=== PATIENT | male | born 1945 | race Caucasian/White ===

== ENCOUNTER → 2017-02-02 | Outpatient (CLI) | payer BC | LOC: MW.CHIM 11:08 | PROVIDERS: ATTEND Internal Medicine | DX: I10 Essential (primary) hypertension (principal); E03.9 Hypothyroidism, unspecified; E78.00 Pure hypercholesterolemia, unspecified; I25.10 Atherosclerotic heart disease of native coronary artery without angina pectoris; K21.9 Gastro-esophageal reflux disease without esophagitis | CPT/HCPCS: 36415; 80053; 80061; 83036; 84439; 84443; 84550; 85025 ==

== ENCOUNTER 2020-10-12 09:39 | Day surgery (SDC) | payer BC, MEDICARE ==
[~2020-10-12 09:39] MED LIST: Glycopyrrolate 0.2 MG/ML SDV ONE; Lactated Ringers 1,000 ML IV SCH; Lidocaine 2% 5 ML SDV ONE; Midazolam 1 MG/ML 2 ML SDV ONE; Propofol 200 MG/20 ML SDV ONE; Sodium Chloride 0.9% 10 ML SDV IV PRN; Sodium Chloride 0.9% 10 ML Syringe FLUSH PRN; Sodium Chloride 0.9% 2.5 ML Syringe FLUSH PRN
--- NOTE | 2020-10-12 10:28 | PCM.PREANE ---
Preanesthetic Assessment - Anesthesia/Transfusion/Family Hx Anesthesia History: Prior Anesthesia Without Reaction Other Type of Anesthesia Reaction Comment: Denies any known problem in past, no known family hx: problems Family History of Anesthesia Reaction: No Transfusion History: No Prior Transfusion(s) - Review of Systems General: No Symptoms Pulmonary: No Symptoms Cardiovascular: No Symptoms Gastrointestinal: Difficulty Swallowing Neurological: No Symptoms Other: Reports: None - Physical Assessment NPO Status Date: 10/11/20 Height: 6 ft 2 in Weight: 103.419 kg ASA Class: 3 Mental Status: Alert & Oriented x3 Airway Class: Mallampati = 2 Dentition: Reports: Normal Dentition ROM/Head Extension: Full Lungs: Clear to Auscultation, Normal Respiratory Effort Cardiovascular: Regular Rate, Regular Rhythm - Allergies Allergies/Adverse Reactions: Allergies Allergy/AdvReac Type Severity Reaction Status Date / Time metoprolol [From Lopressor] Allergy Cannot Verified 10/06/20 09:49 Remember dust Allergy watery Uncoded 10/06/20 09:18 eyes/runny nose - Acknowledgements Anesthesia Type Planned: General Anesthesia (tiva) Pt an Appropriate Candidate for the Planned Anesthesia: Yes Alternatives and Risks of Anesthesia Discussed w Pt/Guardian: Yes Pt/Guardian Understands and Agrees with Anesthesia Plan: Yes Additional Comments: pmh: cad with CABG in Nov 2019, KANIKA- could not tolerate CPAP, pre-DM, htn PLAN: tiva PreAnesthesia Questionnaire HEENT History: Reports: Hard of Hearing, Impaired Vision, Other (See Below) Other HEENT History: uses hearing aid Cardiovascular History: Reports: Afib, CAD, High Cholesterol, Hypertension Other Cardiovascular History: A-fib following heartsurgery Respiratory History: Reports: Sleep Apnea Other Respiratory History: Obstructive sleep apnea, has machine "but do not use it" Gastrointestinal History: Reports: Colon Polyp, GERD Genitourinary History: Reports: BPH Musculoskeletal History: Reports: Arthritis, Fracture Other Musculoskeletal History: hx: Fracturing Wrist Neurological History: Reports: Concussion Other Neuro History: "Headaches used to have all the time from when very young until about 18 years old, treated with BP medication and none after that" Psychiatric History: Reports: Anxiety Endocrine/Metabolic History: Reports: Hypothyroidism Other Endocrine/Metabolic History: Hypothyroidism Hematologic History: Reports: None Immunologic History: Reports: None Oncologic (Cancer) History: Reports: None Dermatologic History: Reports: None - Infectious Disease History Infectious Disease History: Reports: None - Past Surgical History Other Musculoskeletal Surgeries/Procedures:: Left knee arthroscopy - SUBSTANCE USE Tobacco Use Status *Q: Never Tobacco User - HOME MEDS Home Medications: Home Meds Levothyroxine Sodium [Synthroid] 112 mcg PO ACBRK 02/10/15 [History] allopurinoL [Allopurinol] 200 mg PO DAILY 02/10/15 [History] atorvaSTATin Calcium [Atorvastatin Calcium] 20 mg PO BEDTIME 08/20/15 [History] Aspirin [Adult Aspirin Regimen] 81 mg PO DAILY 10/06/20 [History] Fenofibrate,Micronized [Fenofibrate] 43 mg PO DAILY 10/06/20 [History] Isosorbide Mononitrate [Isosorbide Mononitrate ER] 0.5 tab PO DAILY 10/06/20 [History] LORazepam [Ativan] 0.5 - 1 tab PO BID PRN 10/06/20 [History] Nitroglycerin 0.4 mg SL ASDIRECTED PRN 10/06/20 [History] Omeprazole 20 mg PO DAILY 10/06/20 [History] Silodosin 4 mg PO DAILY 10/06/20 [History] amLODIPine [Norvasc] 5 mg PO DAILY 10/06/20 [History] carvediloL [Carvedilol] 12.5 mg PO BID 10/06/20 [History] - CURRENT (IN HOUSE) MEDS Current Meds: Current Medications Lactated Ringer's (Ringers, Lactated) 1,000 mls @ 125 mls/hr IV ASDIRECTED HIRA Sodium Chloride (Saline Flush) 10 ml FLUSH ASDIRECTED PRN PRN Reason: Keep Vein Open Sodium Chloride (Saline Flush) 2.5 ml FLUSH ASDIRECTED PRN PRN Reason: Keep Vein Open Sodium Chloride (Saline Flush) 10 ml FLUSH ASDIRECTED PRN PRN Reason: Keep Vein Open Sodium Chloride (Saline Flush) 2.5 ml FLUSH ASDIRECTED PRN PRN Reason: Keep Vein Open Sodium Chloride (Normal Saline) 10 ml IV ASDIRECTED PRN PRN Reason: IV Use Discontinued Medications Glycopyrrolate (Robinul) Confirm Administered Dose 0.2 mg .ROUTE .STK-MED ONE Stop: 10/12/20 07:17 Lidocaine (Xylocaine-Mpf 2%) Confirm Administered Dose 5 ml .ROUTE .STK-MED ONE Stop: 10/12/20 07:17 Midazolam HCl (Versed 1 Mg/Ml) Confirm Administered Dose 2 mg .ROUTE .STK-MED ONE Stop: 10/12/20 07:17 Propofol (Diprivan 20 Ml) Confirm Administered Dose 600 mg .ROUTE .STK-MED ONE Stop: 10/12/20 07:17
--- NOTE | 2020-10-12 11:34 | PCM.OPNOTE ---
- General Post-Op/Procedure Note Date of Surgery/Procedure: 10/12/20 Operative Procedure(s): Diagnostic EGD and colonoscopy, esophageal dilation Findings: Tiny hiatal hernia, no evidence of tight stricture but dilated to 18 mm, transverse colon polyp, diverticulosis Pre Op Diagnosis: Hiatal hernia with GERD, esophageal spasm, history of colon polyps Post-Op Diagnosis: Hiatal hernia with gerd, transverse colon polyp, diverticulosis [place]est[place] [facility] [place] Surgeon: Sonia Dave Condition: Good
--- NOTE | 2020-10-12 12:12 | PCM.POSTAN ---
POST ANESTHESIA ASSESSMENT - MENTAL STATUS Mental Status: Alert - VITAL SIGNS Vital Signs: Last Vital Signs Temp 36.2 C 10/12/20 10:05 Pulse 62 10/12/20 12:05 Resp 15 10/12/20 12:05 BP 104/67 10/12/20 12:05 Pulse Ox 93 L 10/12/20 12:05 - RESPIRATORY Respiratory Status: Respiratory Rate WNL - CARDIOVASCULAR CV Status: Pulse Rate WNL - GASTROINTESTINAL GI Status: No Symptoms - POST OP HYDRATION Hydration Status: Adequate & Stable
[2020-10-12 12:30] VITALS: BP 101/60; PULSE 72
--- NOTE | 2020-10-12 12:33 | PCM48HPAN ---
Post Anesthesia Note - EVALUATION WITHIN 48HRS OF ANESTHETIC Vital Signs in Normal Range: Yes Patient Participated in Evaluation: Yes Respiratory Function Stable: Yes Airway Patent: Yes Cardiovascular Function Stable: Yes Hydration Status Stable: Yes Pain Control Satisfactory: Yes Nausea and Vomiting Control Satisfactory: Yes Mental Status Recovered: Yes Vital Signs: Last Vital Signs Temp 36.5 C 10/12/20 12:08 Pulse 72 10/12/20 12:08 Resp 15 10/12/20 12:08 BP 101/60 10/12/20 12:08 Pulse Ox 94 L 10/12/20 12:08
--- NOTE | 2020-10-12 15:55 | OR ---
SURGEON: SONIA DAVE MD DATE OF PROCEDURE: 10/12/2020 PREOPERATIVE DIAGNOSES: 1. Dysphagia. 2. Hiatal hernia with gastroesophageal reflux disease. 3. History of colon polyps. POSTOPERATIVE DIAGNOSES: 1. Hiatal hernia with gastroesophageal reflux disease. 2. Dysphagia. 3. Transverse colon polyp. 4. Diverticulosis. PROCEDURES PERFORMED: 1. Diagnostic EGD. 2. Esophageal dilation. 3. Diagnostic colonoscopy with polypectomy. PRIMARY SURGEON: Sonia Dave MD. ANESTHESIA: MAC. INSTRUMENT USED: Olympus endoscope and colonoscope. EXTENT OF EXAM: To the second portion of duodenum, to the cecum. PREPARATION: Good. LIMITATIONS: None. INDICATIONS FOR EXAMINATION: The patient is a 74-year-old male with a past medical history significant for hiatal hernia with GERD. In the past, he has undergone an esophageal dilation. This was many years ago. However, the patient has been having increasing dysphagia. He recently underwent an esophagram that showed a tiny hiatal hernia associated with mild reflux as well as esophageal spasm and a small B-ring. The patient also has a history of colon polyps and is due for a repeat colonoscopy. The patient and I discussed the need for a diagnostic EGD and colonoscopy. I explained the procedures, expected perioperative course, and risks. He verbalized understanding and wished to proceed. His dysphagia symptoms may be coming from his esophageal spasm as opposed to the small B-ring seen on esophagram. I did consent him for a possible dilation given my intraoperative findings. We discussed the expected perioperative course and risks with this. He also consented for this procedure. PROCEDURE IN DETAIL: The patient was brought into the endoscopy suite and placed in a beach chair position. A time-out was completed verifying the patient's name, age, date of , allergies, and procedure to be performed. Monitored anesthesia care was induced. A bite-block was placed in the patient's mouth. Continuous oxygen was provided via face mask throughout the procedure. After adequate sedation was achieved, a well-lubricated endoscope was placed in the patient's mouth and advanced under direct visualization to the second portion of duodenum. This appeared normal and a photograph was taken. The scope was then fully withdrawn while examining the color, texture, anatomy, and integrity of the mucosa of the upper GI tract. The duodenum appeared normal. The scope was brought into the stomach and a photograph was taken of the pylorus and GE junction. The patient's hiatal hernia appeared quite small. Biopsies were taken of the gastric antrum, body, and fundus and sent for histologic review and H. pylori testing. The scope was then brought in the distal esophagus and a photograph was taken of the Z-line. This appeared normal. The distal esophageal mucosa appeared normal and there was no evidence of any pathology in the remainder of the esophagus. Given his esophagram findings of a B-ring, the decision was made to attempt dilation. I could pass my scope easily through the GE junction. A dilation balloon was brought into the field. I dilated the esophagus sequentially up to 18 mm using a series of balloon dilators. At 18 mm, there was only a slight superficial tear along the esophageal mucosa. The decision was made to not dilate any further. The scope was removed and this portion of procedure was terminated. A digital rectal exam was performed. This exam was within normal limits. A well-lubricated colonoscope was inserted in the rectum and advanced under direct visualization to the level of the cecum. The cecum was identified by both visual and anatomic landmarks. A photograph was taken of the cecal cap as well as with the scope retroflexed within the cecum. The scope was then fully withdrawn while examining the color, texture, anatomy, and integrity of the mucosa from the cecum to the anal canal. In the mid transverse colon, the patient was noted to have a sessile polyp. This was removed in piecemeal fashion using a cold biopsy forceps. The patient was noted to have diverticulosis throughout the sigmoid colon. A photograph of this was taken. The scope was then brought into the rectum and retroflexed to allow visualization of the anal canal opening. This appeared normal and a photograph was taken. The scope was then straightened out and fully withdrawn. The cecum to anus time was 8 minutes. The patient tolerated the procedure well, was transferred to the PACU in stable condition. ENDOSCOPIC DIAGNOSES: 1. Hiatal hernia with gastroesophageal reflux disease. 2. Dysphagia. 3. Transverse colon polyp. 4. Diverticulosis. RECOMMENDATIONS: I encouraged the patient to stay on a clear liquid diet for 24 hours and then fully advance his diet as tolerated. He should continue to take his PPI. We will follow up with the patient in clinic in 2 weeks. ALLISON / ANTHONY /[id number]
== END 2020-10-12 12:33 | disposition home or self-care (01) ==
LOC: MW.SDS 09:39
PROVIDERS: ATTEND Surgery
DX: Z12.11 Encounter for screening for malignant neoplasm of colon (principal); D12.3 Benign neoplasm of transverse colon; K22.4 Dyskinesia of esophagus; K44.9 Diaphragmatic hernia without obstruction or gangrene; K21.9 Gastro-esophageal reflux disease without esophagitis; R13.10 Dysphagia, unspecified; K57.30 Diverticulosis of large intestine without perforation or abscess without bleeding; K29.50 Unspecified chronic gastritis without bleeding; F41.9 Anxiety disorder, unspecified; I25.10 Atherosclerotic heart disease of native coronary artery without angina pectoris; G89.29 Other chronic pain; E78.00 Pure hypercholesterolemia, unspecified; E03.9 Hypothyroidism, unspecified; G47.33 Obstructive sleep apnea (adult) (pediatric); I48.91 Unspecified atrial fibrillation; I10 Essential (primary) hypertension; Z88.8 Allergy status to other drugs, medicaments and biological substances; Z79.899 Other long term (current) drug therapy; Z79.890 Hormone replacement therapy; Z98.890 Other specified postprocedural states
CPT/HCPCS: 43249; 45380; 88305; 88312; C1726; J2001; J2250; J2704; J3490; J7120; 00813

== ENCOUNTER 2023-07-12 12:30 | Emergency (ER) | payer BC ==
[2023-07-12 12:58] VITALS: BP 127/82; PULSE 86
[2023-07-12] MEDS ORDERED: Acetaminophen/HYDROcodone 325-5 MG Tab PO ONE (13:01)
[2023-07-12 13:25] LABS: BASOPHILS PERCENT AUTO 0.7 % (0.0-1.5); EOSINOPHILS ABSOLUTE AUTO 0.1 K/uL (0.0-0.7); EOSINOPHILS PERCENT AUTO 2.7 % (0.0-7.0); HEMATOCRIT 43.4 % (38.0-50.0); HEMOGLOBIN 14.2 g/dL (13.0-17.0); LYMPHOCYTES ABSOLUTE AUTO 1.2 K/uL (0.6-2.4); LYMPHOCYTES PERCENT AUTO 26.2 % (16.0-40.0); MEAN CORPUSCULAR HEMOGLOBIN 30.1 pg (27.0-32.0); MEAN CORPUSCULAR HGB CONC 32.7 g/dL (31.0-37.0); MEAN CORPUSCULAR VOLUME 92.1 fL (80.0-98.0); MONOCYTES ABSOLUTE AUTO 0.4 K/uL (0.0-0.8); MONOCYTES PERCENT AUTO 7.8 % (0.0-15.0); NEUTROPHILS ABSOLUTE AUTO 2.8 K/uL (1.4-5.7); NEUTROPHILS PERCENT AUTO 62.6 % (48.0-80.0); NRBC ABSOLUTE 0 K/uL; PLATELET COUNT,PLT 210 K/uL (150-400); RED BLOOD CELL COUNT 4.71 M/uL (4.50-5.90); WHITE BLOOD CELL COUNT,WBC 4.46 K/uL (4.0-11.0)
== END 2023-07-12 15:20 | disposition home or self-care (01) ==
LOC: MW.ED 12:30
DX: M25.461 Effusion, right knee (principal); M17.11 Unilateral primary osteoarthritis, right knee; I25.10 Atherosclerotic heart disease of native coronary artery without angina pectoris; I48.91 Unspecified atrial fibrillation; E78.00 Pure hypercholesterolemia, unspecified; I10 Essential (primary) hypertension; K21.9 Gastro-esophageal reflux disease without esophagitis; E03.9 Hypothyroidism, unspecified; Z79.01 Long term (current) use of anticoagulants; Z79.899 Other long term (current) drug therapy; Z91.048 Other nonmedicinal substance allergy status; Z88.8 Allergy status to other drugs, medicaments and biological substances
CPT/HCPCS: 36415; 73562; 84550; 85025; 99283; A9270

== ENCOUNTER 2024-04-30 17:50 | Emergency (ER) | payer BC ==
[2024-04-30 18:05] LABS: BASOPHILS ABSOLUTE AUTO 0.05 K/uL (0.00-0.20); BASOPHILS PERCENT AUTO 0.7 % (0.0-1.0); EOSINOPHILS PERCENT AUTO 1.5 % (0.0-6.0); HEMATOCRIT 50.5 % (42.0-52.0); HEMOGLOBIN 16.6 g/dL (14.0-18.0); IMMATURE GRAN ABSOLUTE AUTO 0.01 K/uL (0.00-0.05); IMMATURE GRAN PERCENT AUTO 0.1 % (0.0-0.4); LYMPHOCYTES ABSOLUTE AUTO 1.76 K/uL (1.00-4.80); LYMPHOCYTES PERCENT AUTO 26.2 % (24.0-44.0); MEAN CORPUSCULAR HEMOGLOBIN 29.4 pg (28.0-32.0); MEAN CORPUSCULAR HGB CONC 32.9 g/dL (32.0-36.0); MEAN CORPUSCULAR VOLUME 89.4 fL (83.0-99.0); MEAN PLATELET VOLUME 9.7 fL (9.4-12.4); MONOCYTES ABSOLUTE AUTO 0.66 K/uL (0.00-0.80); MONOCYTES PERCENT AUTO 9.8 % (0.0-8.0); NEUTROPHILS ABSOLUTE AUTO 4.14 K/uL (1.80-7.70); NEUTROPHILS PERCENT AUTO 61.7 % (41.0-71.0); PLATELET COUNT,PLT 262 K/uL (150-400); RED BLOOD CELL COUNT 5.65 M/uL (4.52-5.90); WHITE BLOOD CELL COUNT,WBC 6.72 K/uL (3.9-11.3)
[2024-04-30] MEDS: Sodium Chloride 0.9% 2.5 ML Syringe FLUSH PRN (18:24)
[2024-04-30] MEDS: Sodium Chloride 0.9% 10 ML Syringe FLUSH PRN (18:24)
[2024-04-30 18:36] LABS: A/G RATIO 0.9 (0.9-1.6); ALANINE AMINOTRANSFERASE,ALT 29 IU/L (14-63); ALBUMIN 3.6 g/dL (3.4-5.0); ALKALINE PHOSPHATASE 53 U/L (46-116); ASPARTATE AMNIOTRANSFERASE,AST 19 IU/L (15-37); BILIRUBIN TOTAL 0.6 mg/dL (0.2-1.0); BLOOD UREA NITROGEN,BUN 19 mg/dL (7.0-18.0); CALCIUM 9.4 mg/dL (8.5-10.1); CARBON DIOXIDE,CO2 28.9 mmol/L (21.0-32.0); CHLORIDE,CL 101 mmol/L (98-107); CREATININE 2.3 mg/dL (0.8-1.3); GLUCOSE RANDOM 137 mg/dL (74-106); LIPASE 38 U/L (16-77); POTASSIUM,K 4.3 mmol/L (3.5-5.1); PROTEIN TOTAL,TP 7.5 g/dL (6.4-8.2); SODIUM,NA 136 mmol/L (136-148)
[2024-04-30 18:53] LABS: ESTIMATED GFR 29 mL/min (>60)
[2024-04-30 23:20] VITALS: BP 145/88; PULSE 72
== END 2024-04-30 23:18 | disposition home or self-care (01) ==
LOC: MW.ED 17:50
DX: R91.8 Other nonspecific abnormal finding of lung field (principal); M54.50 Low back pain, unspecified; I10 Essential (primary) hypertension; E78.00 Pure hypercholesterolemia, unspecified; I25.10 Atherosclerotic heart disease of native coronary artery without angina pectoris; I48.91 Unspecified atrial fibrillation; K21.9 Gastro-esophageal reflux disease without esophagitis; E03.9 Hypothyroidism, unspecified; Z88.8 Allergy status to other drugs, medicaments and biological substances; Z91.048 Other nonmedicinal substance allergy status; Z79.899 Other long term (current) drug therapy; Z79.01 Long term (current) use of anticoagulants; Z79.85 Long-term (current) use of injectable non-insulin antidiabetic drugs; Z79.890 Hormone replacement therapy; W01.198A Fall on same level from slipping, tripping and stumbling with subsequent striking against other object, initial encounter
CPT/HCPCS: 36415; 70450; 71250; 72125; 72128; 72131; 74176; 80053; 83690; 84484; 85025; 86850; 86900; 86901; 93005; 99284; J3490; 93010; 99283

== ENCOUNTER 2025-01-06 15:27 | Inpatient (IN) | payer MEDICARE, BC ==
[2025-01-06] MEDS ORDERED: Sodium Chloride 0.9% 2.5 ML Syringe FLUSH PRN (15:56)
[2025-01-06] MEDS ORDERED: Sodium Chloride 0.9% 10 ML Syringe FLUSH PRN (15:56)
[2025-01-06] MEDS: Sodium Chloride 0.9% 1,000 ML IV STA ×2 (17:01→18:23)
[2025-01-06 17:05] LABS: BASOPHILS ABSOLUTE AUTO 0.04 K/uL (0.00-0.20); BASOPHILS PERCENT AUTO 0.6 % (0.0-1.0); EOSINOPHILS ABSOLUTE AUTO 0.09 K/uL (0.00-0.45); EOSINOPHILS PERCENT AUTO 1.4 % (0.0-6.0); HEMATOCRIT 47.6 % (42.0-52.0); HEMOGLOBIN 15.8 g/dL (14.0-18.0); IMMATURE GRAN ABSOLUTE AUTO 0.02 K/uL (0.00-0.05); IMMATURE GRAN PERCENT AUTO 0.3 % (0.0-0.4); LYMPHOCYTES ABSOLUTE AUTO 1.02 K/uL (1.00-4.80); LYMPHOCYTES PERCENT AUTO 16.1 % (24.0-44.0); MEAN CORPUSCULAR HEMOGLOBIN 29.4 pg (28.0-32.0); MEAN CORPUSCULAR HGB CONC 33.2 g/dL (32.0-36.0); MEAN CORPUSCULAR VOLUME 88.6 fL (83.0-99.0); MEAN PLATELET VOLUME 9.6 fL (9.4-12.4); MONOCYTES ABSOLUTE AUTO 0.73 K/uL (0.00-0.80); MONOCYTES PERCENT AUTO 11.5 % (0.0-8.0); NEUTROPHILS ABSOLUTE AUTO 4.45 K/uL (1.80-7.70); NEUTROPHILS PERCENT AUTO 70.1 % (41.0-71.0); PLATELET COUNT,PLT 156 K/uL (150-400); RED BLOOD CELL COUNT 5.37 M/uL (4.52-5.90); WHITE BLOOD CELL COUNT,WBC 6.35 K/uL (3.9-11.3)
[2025-01-06 17:26] LABS: CORONAVIRUS COVID-19 NAA NEGATIVE (NEGATIVE); INFLUENZA A NAA NEGATIVE (NEGATIVE); INFLUENZA B NAA NEGATIVE (NEGATIVE); RESPIRATORY SYNCYTIAL VIR NAA POSITIVE (NEGATIVE)
[2025-01-06 17:28] LABS: A/G RATIO 1.1 (0.9-1.6); ALBUMIN 3.6 g/dL (3.4-5.0); BILIRUBIN TOTAL 0.9 mg/dL (0.2-1.0); CALCIUM 8.9 mg/dL (8.5-10.1); CARBON DIOXIDE,CO2 27.9 mmol/L (21.0-32.0); CREATININE 2.1 mg/dL (0.8-1.3); EST CRCL DRUG DOSING (CG) 32.33 mL/min
[2025-01-06 17:31] LABS: MAGNESIUM 1.8 mg/dL (1.8-2.4)
[2025-01-06 19:16] LABS: BILIRUBIN,URINE NEGATIVE (NEGATIVE); COLOR,URINE YELLOW; GLUCOSE,URINE NEGATIVE (NEGATIVE); KETONES,URINE NEGATIVE (NEGATIVE); LEUKOCYTE ESTERASE,URINE NEGATIVE (NEGATIVE); NITRITE,URINE NEGATIVE (NEGATIVE); OCCULT BLOOD,URINE MODERATE (NEGATIVE); PH,URINE 5.5 (5.0-8.0); PROTEIN,URINE >=300 mg/dL (NEGATIVE); UROBILINOGEN,URINE 0.2 EU/dL (<2.0)
[2025-01-06 19:17] LABS: APPEARANCE,URINE HAZY
[2025-01-06 19:20] LABS: BACTERIA,URINE FEW (NEGATIVE); HYALINE CASTS,URINE 0-1 (0-2/LPF); MUCUS,URINE LIGHT (NONE-MOD); SQUAMOUS EPITHELIAL CELLS,UR NOT SEEN; WBC,URINE 0-2 (0-5/HPF)
[2025-01-06] MEDS ORDERED: 50% Dextrose in Water 50 ML Syringe IVPUSH PRN (23:08)
[2025-01-06] MEDS ORDERED: Glucagon,Human Recombinant 1 MG Vial IM PRN (23:08)
[2025-01-06] MEDS: Apixaban 5 MG Tab PO SCH (23:21)
[2025-01-06] MEDS: atorvaSTATin 20 MG Tab PO SCH (23:21)
[2025-01-06] MEDS: Losartan 25 MG Tab PO STA (23:21)
[2025-01-06] MEDS: Carvedilol 12.5 MG Tab PO SCH (23:23)
[2025-01-06] MEDS: Sodium Chloride 0.9% 1,000 ML IV SCH (23:24)
[2025-01-06] MEDS: Acetaminophen 325 MG Tab PO PRN (23:24)
[2025-01-07 06:44] LABS: BASOPHILS ABSOLUTE AUTO 0.03 K/uL (0.00-0.20); BASOPHILS PERCENT AUTO 0.6 % (0.0-1.0); EOSINOPHILS ABSOLUTE AUTO 0.06 K/uL (0.00-0.45); EOSINOPHILS PERCENT AUTO 1.1 % (0.0-6.0); HEMATOCRIT 44.6 % (42.0-52.0); HEMOGLOBIN 14.6 g/dL (14.0-18.0); IMMATURE GRAN ABSOLUTE AUTO 0.01 K/uL (0.00-0.05); IMMATURE GRAN PERCENT AUTO 0.2 % (0.0-0.4); LYMPHOCYTES ABSOLUTE AUTO 1.25 K/uL (1.00-4.80); LYMPHOCYTES PERCENT AUTO 23.4 % (24.0-44.0); MEAN CORPUSCULAR HGB CONC 32.7 g/dL (32.0-36.0); MEAN CORPUSCULAR VOLUME 88.7 fL (83.0-99.0); MONOCYTES ABSOLUTE AUTO 0.63 K/uL (0.00-0.80); MONOCYTES PERCENT AUTO 11.8 % (0.0-8.0); NEUTROPHILS ABSOLUTE AUTO 3.37 K/uL (1.80-7.70); NEUTROPHILS PERCENT AUTO 62.9 % (41.0-71.0); PLATELET COUNT,PLT 130 K/uL (150-400); RED BLOOD CELL COUNT 5.03 M/uL (4.52-5.90); WHITE BLOOD CELL COUNT,WBC 5.35 K/uL (3.9-11.3)
[2025-01-07 07:15] LABS: A/G RATIO 0.9 (0.9-1.6); CALCIUM 8.1 mg/dL (8.5-10.1); CARBON DIOXIDE,CO2 23.8 mmol/L (21.0-32.0); CREATININE 1.8 mg/dL (0.8-1.3); EST CRCL DRUG DOSING (CG) 39.96 mL/min; POTASSIUM,K 4.5 mmol/L (3.5-5.1); PROTEIN TOTAL,TP 6.5 g/dL (6.4-8.2)
[2025-01-07] MEDS: Insulin Aspart 100 Units/ML 3 ML Pen SUBCUT SCH (09:20)
[2025-01-07] MEDS ORDERED: Cyclobenzaprine 10 MG Tab PO PRN (12:18)
[2025-01-07] MEDS ORDERED: Polyethylene Glycol 3350 Powder 17 GM Packet PO PRN (12:22)
[2025-01-07] MEDS ORDERED: Docusate Sodium 100 MG Cap PO PRN (12:23)
[2025-01-07] MEDS ORDERED: Isosorbide Mononitrate 30 MG Tab.ER PO SCH (12:30)
[2025-01-07] MEDS: Losartan 25 MG Tab PO SCH (13:45)
[2025-01-07] MEDS: Fluticasone NASAL Spray 16 GM Bottle NASBOTH PRN (20:26)
[2025-01-07] MEDS: Carboxymethylcellulose Sodium 0.5% Ophth Soln 0.4 ML UD Box of 30 EYEBOTH PRN (20:26)
[2025-01-08] MEDS: Allopurinol 100 MG Tab PO SCH (06:31)
[2025-01-08] MEDS: Pantoprazole 40 MG Tab.CR PO SCH (06:31)
[2025-01-08 07:03] LABS: BASOPHILS ABSOLUTE AUTO 0.04 K/uL (0.00-0.20); BASOPHILS PERCENT AUTO 0.9 % (0.0-1.0); EOSINOPHILS ABSOLUTE AUTO 0.12 K/uL (0.00-0.45); EOSINOPHILS PERCENT AUTO 2.6 % (0.0-6.0); HEMATOCRIT 44.9 % (42.0-52.0); LYMPHOCYTES PERCENT AUTO 30.6 % (24.0-44.0); MEAN CORPUSCULAR HEMOGLOBIN 29.1 pg (28.0-32.0); MEAN CORPUSCULAR HGB CONC 33.4 g/dL (32.0-36.0); MEAN PLATELET VOLUME 9.3 fL (9.4-12.4); MONOCYTES ABSOLUTE AUTO 0.62 K/uL (0.00-0.80); MONOCYTES PERCENT AUTO 13.5 % (0.0-8.0); NEUTROPHILS PERCENT AUTO 52.4 % (41.0-71.0); PLATELET COUNT,PLT 134 K/uL (150-400); RED BLOOD CELL COUNT 5.16 M/uL (4.52-5.90); WHITE BLOOD CELL COUNT,WBC 4.58 K/uL (3.9-11.3)
[2025-01-08 07:24] LABS: A/G RATIO 0.8 (0.9-1.6); CALCIUM 8.5 mg/dL (8.5-10.1); CREATININE 1.7 mg/dL (0.8-1.3); EST CRCL DRUG DOSING (CG) 42.31 mL/min; POTASSIUM,K 4.2 mmol/L (3.5-5.1); PROTEIN TOTAL,TP 6.8 g/dL (6.4-8.2)
[2025-01-08] MEDS ORDERED: Sodium Chloride 0.9% 1,000 ML IV SCH (07:45)
[2025-01-08] MEDS: Tamsulosin 0.4 MG Cap.ER PO SCH (09:34)
[2025-01-08] MEDS: Sertraline 50 MG Tab PO SCH (09:36)
[2025-01-08 09:38] VITALS: BP 108/63; PULSE 55
== END 2025-01-08 11:12 | disposition home or self-care (01) | DRG 92 ==
LOC: MW.ED 15:27 → MW.MS 20:07 → OBSVTOIN 01-07 08:58 → MW.MS 01-07 09:39
PROVIDERS: ADMIT Internal Medicine; ATTEND Internal Medicine
DX: G72.9 Myopathy, unspecified (principal); C64.9 Malignant neoplasm of unspecified kidney, except renal pelvis; G93.49 Other encephalopathy; R41.0 Disorientation, unspecified; D84.9 Immunodeficiency, unspecified; N18.32 Chronic kidney disease, stage 3b; H91.90 Unspecified hearing loss, unspecified ear; H54.7 Unspecified visual loss; I48.91 Unspecified atrial fibrillation; I25.10 Atherosclerotic heart disease of native coronary artery without angina pectoris; E78.00 Pure hypercholesterolemia, unspecified; Z91.048 Other nonmedicinal substance allergy status; G47.30 Sleep apnea, unspecified; Z79.890 Hormone replacement therapy; K21.9 Gastro-esophageal reflux disease without esophagitis; N40.0 Benign prostatic hyperplasia without lower urinary tract symptoms; M19.90 Unspecified osteoarthritis, unspecified site; F41.9 Anxiety disorder, unspecified; E03.9 Hypothyroidism, unspecified; J31.0 Chronic rhinitis; I12.9 Hypertensive chronic kidney disease with stage 1 through stage 4 chronic kidney disease, or unspecified chronic kidney disease; E86.0 Dehydration; R33.9 Retention of urine, unspecified; M47.812 Spondylosis without myelopathy or radiculopathy, cervical region; B97.4 Respiratory syncytial virus as the cause of diseases classified elsewhere; Z90.12 Acquired absence of left breast and nipple; Z79.899 Other long term (current) drug therapy; Z88.8 Allergy status to other drugs, medicaments and biological substances; Z79.01 Long term (current) use of anticoagulants; Z85.53 Personal history of malignant neoplasm of renal pelvis
CPT/HCPCS: 0241U; 36415; 51798; 70450; 71045; 72125; 80053; 81001; 82947; 83690; 83735; 84484; 85025; 93005; 96360; 96361; 97162; 99285; 93010; 99222; 99232; 99239; 99284; A9270-GY; G0378; J3490; J7030

== ENCOUNTER 2025-06-27 23:06 | Inpatient (IN) | payer MEDICARE, BC ==
[2025-06-27] MEDS ORDERED: Sodium Chloride 0.9% 10 ML Syringe FLUSH PRN (23:23)
[2025-06-27] MEDS ORDERED: Sodium Chloride 0.9% 2.5 ML Syringe FLUSH PRN (23:23)
[2025-06-28 00:20] LABS: INR 1.18 (0.86-1.11)
[2025-06-28 00:29] LABS: MEAN PLATELET VOLUME 9.5 fL (9.4-12.4); NRBC ABSOLUTE 0.00 K/uL (0.00-0.02); NRBC PERCENT 0.0 /100WBC (0.0-0.2); PLATELET COUNT,PLT 185 K/uL (150-400); RED BLOOD CELL COUNT 3.34 M/uL (4.52-5.90); WHITE BLOOD CELL COUNT,WBC 3.36 K/uL (3.9-11.3)
[2025-06-28 00:31] LABS: LACTIC ACID 1.2 mmol/L (0.4-2.0)
[2025-06-28 00:32] LABS: A/G RATIO 0.9 (0.9-1.6); ALANINE AMINOTRANSFERASE,ALT 18 IU/L (14-63); ASPARTATE AMNIOTRANSFERASE,AST 9 IU/L (15-37); BILIRUBIN TOTAL 0.6 mg/dL (0.2-1.0); BLOOD UREA NITROGEN,BUN 19 mg/dL (7.0-18.0); CARBON DIOXIDE,CO2 24.6 mmol/L (21.0-32.0); CHLORIDE,CL 105 mmol/L (98-107); CREATININE 2.0 mg/dL (0.8-1.3); GLUCOSE RANDOM 141 mg/dL (74-106); POTASSIUM,K 3.6 mmol/L (3.5-5.1); PRO B-TYPE NATRIUR PEPT,BNPPRO 3281 pg/mL (0-450); PROTEIN TOTAL,TP 6.1 g/dL (6.4-8.2); SODIUM,NA 140 mmol/L (136-148)
[2025-06-28 00:34] LABS: ESTIMATED GFR 34 mL/min (>60); ETHANOL BLOOD MEDICAL < 3.0 mg/dL
[2025-06-28] MEDS: VANCOmycin 1.75 GM/350 ML 1.75 GM in Premix Bag 1 BAG IV ONE (00:41)
[2025-06-28] MEDS: Magnesium Sulfate 2 GM/50 mL 2 GM in Premix Bag 1 BAG IV ONE (01:02)
[2025-06-28 01:37] LABS: EOSINOPHILS ABSOLUTE MAN 0.07 K/uL (0.00-0.45); EOSINOPHILS PERCENT MAN 2 % (0-6); LYMPHOCYTES ABSOLUTE MAN 0.54 K/uL (1.00-4.80); LYMPHOCYTES PERCENT MAN 16 % (24-44); MONOCYTES ABSOLUTE MAN 0.60 K/uL (0.00-0.80); MONOCYTES PERCENT MAN 18 % (0-8); SEG NEUTROPHILS ABSOLUTE MAN 2.15 K/uL (1.80-7.70); SEG NEUTROPHILS PERCENT MAN 64 % (41-71)
[2025-06-28] MEDS ORDERED: Sodium Chloride 0.9% 10 ML Syringe FLUSH PRN (02:06)
[2025-06-28] MEDS ORDERED: Sodium Chloride 0.9% 2.5 ML Syringe FLUSH PRN (02:06)
[2025-06-28] MEDS ORDERED: Naloxone 0.4 MG/ML SDV IVPUSH PRN (02:06)
[2025-06-28] MEDS ORDERED: 50% Dextrose in Water 50 ML Syringe IVPUSH PRN ×2 (02:14→13:32)
[2025-06-28] MEDS: cefTRIAXone 2 GM in Water For Injection, Sterile 20 ML IVPUSH SCH (03:47)
[2025-06-28] MEDS: Ondansetron 4 MG/2 ML SDV IVPUSH SCH ×2 (03:53→07:47)
[2025-06-28 05:23] LABS: MEAN PLATELET VOLUME 9.4 fL (9.4-12.4); NRBC ABSOLUTE 0.00 K/uL (0.00-0.02); NRBC PERCENT 0.0 /100WBC (0.0-0.2); PLATELET COUNT,PLT 159 K/uL (150-400); RED BLOOD CELL COUNT 2.93 M/uL (4.52-5.90); WHITE BLOOD CELL COUNT,WBC 3.57 K/uL (3.9-11.3)
[2025-06-28 05:44] LABS: BLOOD UREA NITROGEN,BUN 19.0 mg/dL (7.0-18.0); CARBON DIOXIDE,CO2 25.4 mmol/L (21.0-32.0); CHLORIDE,CL 106.0 mmol/L (98-107); CREATININE 1.9 mg/dL (0.8-1.3); EST CRCL DRUG DOSING (CG) 37.86 mL/min; GLUCOSE RANDOM 125.0 mg/dL (74-106); POTASSIUM,K 3.9 mmol/L (3.5-5.1); SODIUM,NA 140.0 mmol/L (136-148)
[2025-06-28 06:07] LABS: ESTIMATED GFR 36.0 mL/min (>60)
[2025-06-28 06:38] LABS: EOSINOPHILS ABSOLUTE MAN 0.18 K/uL (0.00-0.45); EOSINOPHILS PERCENT MAN 5 % (0-6); LYMPHOCYTES ABSOLUTE MAN 1.00 K/uL (1.00-4.80); LYMPHOCYTES PERCENT MAN 28 % (24-44); MONOCYTES ABSOLUTE MAN 0.43 K/uL (0.00-0.80); MONOCYTES PERCENT MAN 12 % (0-8); SEG NEUTROPHILS ABSOLUTE MAN 1.96 K/uL (1.80-7.70); SEG NEUTROPHILS PERCENT MAN 55 % (41-71)
[2025-06-28 06:49] LABS: APPEARANCE,URINE CLEAR; GLUCOSE,URINE NEGATIVE (NEGATIVE); OCCULT BLOOD,URINE MODERATE (NEGATIVE)
[2025-06-28 07:01] LABS: EPITHELIAL CELLS,URINE FEW (NONE-FEW)
[2025-06-28] MEDS: Metoprolol Tartrate 5 MG/5 ML SDV IVPUSH ONE (07:21)
[2025-06-28] MEDS: Diltiazem 25 MG/5 ML SDV IVPUSH ONE ×2 (07:26→10:11)
[2025-06-28] MEDS ORDERED: Ondansetron 4 MG/2 ML SDV IVPUSH PRN (13:49)
[2025-06-28] MEDS: Insulin Glargine,Human Rec. Analog 100 Units/ML 3 ML Pen SUBCUT SCH (21:05)
[2025-06-29 05:07] LABS: MEAN PLATELET VOLUME 9.1 fL (9.4-12.4); NRBC ABSOLUTE 0.00 K/uL (0.00-0.02); NRBC PERCENT 0.0 /100WBC (0.0-0.2); PLATELET COUNT,PLT 175 K/uL (150-400); RED BLOOD CELL COUNT 3.03 M/uL (4.52-5.90); WHITE BLOOD CELL COUNT,WBC 3.30 K/uL (3.9-11.3)
[2025-06-29 05:35] LABS: A/G RATIO 0.8 (0.9-1.6); ALANINE AMINOTRANSFERASE,ALT 9.0 IU/L (14-63); ASPARTATE AMNIOTRANSFERASE,AST 10.0 IU/L (15-37); BILIRUBIN TOTAL 0.2 mg/dL (0.2-1.0); BLOOD UREA NITROGEN,BUN 12.0 mg/dL (7.0-18.0); CARBON DIOXIDE,CO2 23.8 mmol/L (21.0-32.0); CHLORIDE,CL 108.0 mmol/L (98-107); CREATININE 1.7 mg/dL (0.8-1.3); EST CRCL DRUG DOSING (CG) 42.31 mL/min; GLUCOSE RANDOM 129.0 mg/dL (74-106); POTASSIUM,K 3.5 mmol/L (3.5-5.1); PROTEIN TOTAL,TP 5.0 g/dL (6.4-8.2); SODIUM,NA 143.0 mmol/L (136-148)
[2025-06-29 05:46] LABS: ESTIMATED GFR 41.0 mL/min (>60)
[2025-06-29 05:48] LABS: EOSINOPHILS ABSOLUTE MAN 0.07 K/uL (0.00-0.45); EOSINOPHILS PERCENT MAN 2 % (0-6); MYELOCYTE ABSOLUTE MAN 0.03; MYELOCYTE PERCENT MAN 1 %
[2025-06-29 05:49] LABS: BAND ABSOLUTE MAN 0.17; BAND PERCENT MAN 5 %; LYMPHOCYTES ABSOLUTE MAN 0.99 K/uL (1.00-4.80); LYMPHOCYTES PERCENT MAN 30 % (24-44)
[2025-06-29 05:50] LABS: MONOCYTES ABSOLUTE MAN 0.66 K/uL (0.00-0.80); MONOCYTES PERCENT MAN 20 % (0-8); SEG NEUTROPHILS ABSOLUTE MAN 1.39 K/uL (1.80-7.70); SEG NEUTROPHILS PERCENT MAN 42 % (41-71)
[2025-06-29] MEDS ORDERED: Octreotide 100 MCG/ML SDV SUBCUT SCH (14:00)
[2025-06-29] MEDS: Diltiazem IR 60 MG Tab PO SCH (21:02)
[2025-06-29] MEDS: Octreotide 100 MCG/ML SDV SUBCUT SCH (21:09)
[2025-06-30] MEDS: cefTRIAXone 1 GM in Water For Injection, Sterile 10 ML IVPUSH SCH (02:31)
[2025-06-30 06:03] LABS: BORDETELLA PARAPERT IS1001 Not Detected (Not Detected)
[2025-06-30 08:59] LABS: MEAN PLATELET VOLUME 9.3 fL (9.4-12.4); NRBC ABSOLUTE 0.00 K/uL (0.00-0.02); NRBC PERCENT 0.0 /100WBC (0.0-0.2); PLATELET COUNT,PLT 205 K/uL (150-400); RED BLOOD CELL COUNT 3.14 M/uL (4.52-5.90); WHITE BLOOD CELL COUNT,WBC 3.24 K/uL (3.9-11.3)
[2025-06-30 09:40] LABS: A/G RATIO 0.7 (0.9-1.6); ALANINE AMINOTRANSFERASE,ALT 6.0 IU/L (14-63); ASPARTATE AMNIOTRANSFERASE,AST 13.0 IU/L (15-37); BILIRUBIN TOTAL 0.3 mg/dL (0.2-1.0); BLOOD UREA NITROGEN,BUN 9.0 mg/dL (7.0-18.0); CARBON DIOXIDE,CO2 22.4 mmol/L (21.0-32.0); CHLORIDE,CL 110.0 mmol/L (98-107); CREATININE 1.6 mg/dL (0.8-1.3); EST CRCL DRUG DOSING (CG) 44.95 mL/min; GLUCOSE RANDOM 154.0 mg/dL (74-106); POTASSIUM,K 3.8 mmol/L (3.5-5.1); PROTEIN TOTAL,TP 4.8 g/dL (6.4-8.2); SODIUM,NA 142.0 mmol/L (136-148)
[2025-06-30 09:51] LABS: ESTIMATED GFR 44.0 mL/min (>60)
[2025-06-30 10:06] LABS: BAND ABSOLUTE MAN 0.52; BAND PERCENT MAN 16 %; EOSINOPHILS ABSOLUTE MAN 0.26 K/uL (0.00-0.45); EOSINOPHILS PERCENT MAN 8 % (0-6); LYMPHOCYTES ABSOLUTE MAN 1.23 K/uL (1.00-4.80); LYMPHOCYTES PERCENT MAN 38 % (24-44); METAMYELOCYTE ABSOLUTE MAN 0.06; METAMYELOCYTE PERCENT MAN 2 %; MONOCYTES ABSOLUTE MAN 0.06 K/uL (0.00-0.80); MONOCYTES PERCENT MAN 2 % (0-8); SEG NEUTROPHILS ABSOLUTE MAN 1.10 K/uL (1.80-7.70); SEG NEUTROPHILS PERCENT MAN 34 % (41-71)
[2025-06-30 15:12] VITALS: BP 114/76; PULSE 73
== END 2025-06-30 13:00 | disposition home or self-care (01) | DRG 195 ==
LOC: MW.ED 23:06 → MW.MS 06-28 02:11
PROVIDERS: ADMIT Family Medicine; ATTEND Family Medicine
DX: J18.9 Pneumonia, unspecified organism (principal); H91.90 Unspecified hearing loss, unspecified ear; Z79.890 Hormone replacement therapy; H54.7 Unspecified visual loss; I48.91 Unspecified atrial fibrillation; I25.10 Atherosclerotic heart disease of native coronary artery without angina pectoris; E78.00 Pure hypercholesterolemia, unspecified; I10 Essential (primary) hypertension; G47.30 Sleep apnea, unspecified; K21.9 Gastro-esophageal reflux disease without esophagitis; N40.0 Benign prostatic hyperplasia without lower urinary tract symptoms; M19.90 Unspecified osteoarthritis, unspecified site; F41.9 Anxiety disorder, unspecified; E11.9 Type 2 diabetes mellitus without complications; E03.9 Hypothyroidism, unspecified; Z98.890 Other specified postprocedural states; Z88.8 Allergy status to other drugs, medicaments and biological substances; Z79.4 Long term (current) use of insulin; Z79.01 Long term (current) use of anticoagulants; Z79.899 Other long term (current) drug therapy
CPT/HCPCS: 36415; 70450; 71045; 76705; 80053; 80307; 83605; 83690; 83735; 83880; 84484; 85025; 85610; 87040 ×2; 96365 ×2; 96367; 99285; A9270; J2543; J3375; J3475; J7030; 80048; 81001; 82947; 86140; 87045; 87046; 87086; 87324; 87328; 87329; 87426-QW; 87449; 87486; 87581; 87633; 87899; 93010; 93306; 99222; 99232; 99239; A4216; J0456; J0696; J1815-GY; J2270; J2405; J3490; J7050; Q5104

== ENCOUNTER 2025-09-01 05:38 | Emergency (ER) | payer MEDICARE, BC ==
[2025-09-01 06:25] LABS: BASOPHILS ABSOLUTE AUTO 0.03 K/uL (0.00-0.20); BASOPHILS PERCENT AUTO 0.4 % (0.0-1.0); EOSINOPHILS ABSOLUTE AUTO 0.21 K/uL (0.00-0.45); EOSINOPHILS PERCENT AUTO 3.1 % (0.0-6.0); IMMATURE GRAN ABSOLUTE AUTO 0.02 K/uL (0.00-0.05); IMMATURE GRAN PERCENT AUTO 0.3 % (0.0-0.4); LYMPHOCYTES ABSOLUTE AUTO 2.51 K/uL (1.00-4.80); LYMPHOCYTES PERCENT AUTO 37.4 % (24.0-44.0); MEAN PLATELET VOLUME 9.4 fL (9.4-12.4); MONOCYTES ABSOLUTE AUTO 0.83 K/uL (0.00-0.80); MONOCYTES PERCENT AUTO 12.4 % (0.0-8.0); NEUTROPHILS ABSOLUTE AUTO 3.12 K/uL (1.80-7.70); NEUTROPHILS PERCENT AUTO 46.4 % (41.0-71.0); NRBC ABSOLUTE 0.00 K/uL (0.00-0.02); NRBC PERCENT 0.0 /100WBC (0.0-0.2); PLATELET COUNT,PLT 263 K/uL (150-400); RED BLOOD CELL COUNT 4.66 M/uL (4.52-5.90); WHITE BLOOD CELL COUNT,WBC 6.72 K/uL (3.9-11.3)
[2025-09-01 07:58] LABS: A/G RATIO 0.5 (0.9-1.6); ALANINE AMINOTRANSFERASE,ALT 23 IU/L (14-63); ASPARTATE AMNIOTRANSFERASE,AST 14 IU/L (15-37); BILIRUBIN TOTAL 0.4 mg/dL (0.2-1.0); BLOOD UREA NITROGEN,BUN 20 mg/dL (7.0-18.0); CARBON DIOXIDE,CO2 31.0 mmol/L (21.0-32.0); CHLORIDE,CL 101 mmol/L (98-107); CREATININE 1.8 mg/dL (0.8-1.3); EST CRCL DRUG DOSING (CG) 35.97 mL/min; ESTIMATED GFR 38 mL/min (>60); GLUCOSE RANDOM 100 mg/dL (74-106); POTASSIUM,K 3.5 mmol/L (3.5-5.1); PRO B-TYPE NATRIUR PEPT,BNPPRO 4089 pg/mL (0-450); PROTEIN TOTAL,TP 5.7 g/dL (6.4-8.2); SODIUM,NA 138 mmol/L (136-148); TSH ULTRASENSITIVE 0.79 uIU/mL (0.36-3.74)
[2025-09-01] MEDS ORDERED: Magnesium Sulfate (4.06 MEQ/ML) 5 GM/10 ML SDV IV ONE (08:37)
[2025-09-01] MEDS ORDERED: Calcium Gluc in NaCl, ISO-OSM 1,000 MG in Premix Bag 1 BAG IV ONE (08:37)
[2025-09-01] MEDS: Calcium Gluc in NaCl, ISO-OSM 1,000 MG in Premix Bag 1 BAG IV SCH (09:40)
[2025-09-01] MEDS: Magnesium Sulfate 4 GM/100 mL 4 GM in Premix Bag 1 BAG IV ONE (10:10)
[2025-09-01 10:55] LABS: APPEARANCE,URINE CLEAR; GLUCOSE,URINE NEGATIVE (NEGATIVE); OCCULT BLOOD,URINE NEGATIVE (NEGATIVE)
[2025-09-01 11:04] LABS: EPITHELIAL CELLS,URINE NOT SEEN (NONE-FEW)
[2025-09-01 13:32] VITALS: BP 141/87; PULSE 91
== END 2025-09-01 13:32 | disposition home or self-care (01) ==
LOC: MW.ED 05:38
DX: E83.42 Hypomagnesemia (principal); E83.51 Hypocalcemia; I48.91 Unspecified atrial fibrillation; E78.00 Pure hypercholesterolemia, unspecified; I10 Essential (primary) hypertension; E11.40 Type 2 diabetes mellitus with diabetic neuropathy, unspecified; E03.9 Hypothyroidism, unspecified; Z91.048 Other nonmedicinal substance allergy status; Z88.8 Allergy status to other drugs, medicaments and biological substances; Z79.899 Other long term (current) drug therapy; Z79.4 Long term (current) use of insulin; Z79.890 Hormone replacement therapy
CPT/HCPCS: 36415; 71045; 80053; 81001; 83605; 83690; 83735; 83880; 84443; 84484; 85025; 93005; 96361; 96365; 96366; 96367; 99285; J3475; J7030; 93010; 99284; J0613

== ENCOUNTER 2025-09-12 15:34 | Emergency (ER) | payer MEDICARE, BC ==
[2025-09-12] MEDS ORDERED: Sodium Chloride 0.9% 2.5 ML Syringe FLUSH PRN (16:18)
[2025-09-12] MEDS ORDERED: Sodium Chloride 0.9% 10 ML Syringe FLUSH PRN (16:18)
[2025-09-12 17:36] LABS: BASOPHILS ABSOLUTE AUTO 0.02 K/uL (0.00-0.20); BASOPHILS PERCENT AUTO 0.4 % (0.0-1.0); EOSINOPHILS ABSOLUTE AUTO 0.08 K/uL (0.00-0.45); EOSINOPHILS PERCENT AUTO 1.6 % (0.0-6.0); IMMATURE GRAN ABSOLUTE AUTO 0.02 K/uL (0.00-0.05); IMMATURE GRAN PERCENT AUTO 0.4 % (0.0-0.4); LYMPHOCYTES ABSOLUTE AUTO 1.43 K/uL (1.00-4.80); LYMPHOCYTES PERCENT AUTO 27.8 % (24.0-44.0); MEAN PLATELET VOLUME 9.1 fL (9.4-12.4); MONOCYTES ABSOLUTE AUTO 0.74 K/uL (0.00-0.80); MONOCYTES PERCENT AUTO 14.4 % (0.0-8.0); NEUTROPHILS ABSOLUTE AUTO 2.86 K/uL (1.80-7.70); NEUTROPHILS PERCENT AUTO 55.4 % (41.0-71.0); NRBC ABSOLUTE 0.00 K/uL (0.00-0.02); NRBC PERCENT 0.0 /100WBC (0.0-0.2); PLATELET COUNT,PLT 240 K/uL (150-400); RED BLOOD CELL COUNT 3.88 M/uL (4.52-5.90); WHITE BLOOD CELL COUNT,WBC 5.15 K/uL (3.9-11.3)
[2025-09-12 18:14] LABS: A/G RATIO 0.5 (0.9-1.6); ALANINE AMINOTRANSFERASE,ALT 16.0 IU/L (14-63); ASPARTATE AMNIOTRANSFERASE,AST 12.0 IU/L (15-37); BILIRUBIN TOTAL 0.4 mg/dL (0.2-1.0); BLOOD UREA NITROGEN,BUN 32.0 mg/dL (7.0-18.0); CARBON DIOXIDE,CO2 30.5 mmol/L (21.0-32.0); CHLORIDE,CL 102.0 mmol/L (98-107); CREATININE 1.9 mg/dL (0.8-1.3); EST CRCL DRUG DOSING (CG) 33.42 mL/min; GLUCOSE RANDOM 86.0 mg/dL (74-106); POTASSIUM,K 4.0 mmol/L (3.5-5.1); PROTEIN TOTAL,TP 5.6 g/dL (6.4-8.2); SODIUM,NA 137.0 mmol/L (136-148)
[2025-09-12 18:19] LABS: ESTIMATED GFR 36.0 mL/min (>60)
[2025-09-12] MEDS: Calcium Gluconate 10% 1 GM/10 ML SDV IVPUSH ONE (20:07)
[2025-09-12] MEDS: Magnesium Sulfate 2 GM/50 mL 2 GM in Premix Bag 1 BAG IV ONE (20:07)
[2025-09-12] MEDS: Ondansetron 4 MG/2 ML SDV IVPUSH ONE (21:41)
[2025-09-12 22:03] VITALS: BP 140/96; PULSE 101
== END 2025-09-12 22:07 | disposition home or self-care (01) ==
LOC: MW.ED 15:34
DX: S20.212A Contusion of left front wall of thorax, initial encounter (principal); E83.42 Hypomagnesemia; E83.51 Hypocalcemia; I48.91 Unspecified atrial fibrillation; I25.10 Atherosclerotic heart disease of native coronary artery without angina pectoris; I10 Essential (primary) hypertension; E78.00 Pure hypercholesterolemia, unspecified; K21.9 Gastro-esophageal reflux disease without esophagitis; E11.41 Type 2 diabetes mellitus with diabetic mononeuropathy; E03.9 Hypothyroidism, unspecified; Z88.8 Allergy status to other drugs, medicaments and biological substances; Z91.048 Other nonmedicinal substance allergy status; Z79.4 Long term (current) use of insulin; Z79.01 Long term (current) use of anticoagulants; Z79.890 Hormone replacement therapy; Z79.899 Other long term (current) drug therapy; Z75.3 Unavailability and inaccessibility of health-care facilities; W19.XXXA Unspecified fall, initial encounter
CPT/HCPCS: 36415; 70450; 71250; 72125; 80053; 83735; 85025; 93005; 96361; 96365; 96375; 99284; A9270; J0612; J2270; J2405; J3475; J7030; 99283

== ENCOUNTER 2025-09-24 15:45 | Inpatient (IN) | payer MEDICARE, BC ==
[2025-09-24] MEDS: Iopamidol 755 MG/ML 500 ML Multipack Bottle IVPUSH STA (16:10)
[2025-09-24 16:36] LABS: BASOPHILS ABSOLUTE AUTO 0.02 K/uL (0.00-0.20); BASOPHILS PERCENT AUTO 0.5 % (0.0-1.0); EOSINOPHILS ABSOLUTE AUTO 0.01 K/uL (0.00-0.45); EOSINOPHILS PERCENT AUTO 0.2 % (0.0-6.0); IMMATURE GRAN ABSOLUTE AUTO 0.01 K/uL (0.00-0.05); IMMATURE GRAN PERCENT AUTO 0.2 % (0.0-0.4); LYMPHOCYTES ABSOLUTE AUTO 0.97 K/uL (1.00-4.80); LYMPHOCYTES PERCENT AUTO 23.4 % (24.0-44.0); MEAN PLATELET VOLUME 9.0 fL (9.4-12.4); MONOCYTES ABSOLUTE AUTO 0.34 K/uL (0.00-0.80); MONOCYTES PERCENT AUTO 8.2 % (0.0-8.0); NEUTROPHILS ABSOLUTE AUTO 2.80 K/uL (1.80-7.70); NEUTROPHILS PERCENT AUTO 67.5 % (41.0-71.0); NRBC ABSOLUTE 0.00 K/uL (0.00-0.02); NRBC PERCENT 0.0 /100WBC (0.0-0.2); PLATELET COUNT,PLT 197 K/uL (150-400); RED BLOOD CELL COUNT 3.38 M/uL (4.52-5.90); WHITE BLOOD CELL COUNT,WBC 4.15 K/uL (3.9-11.3)
[2025-09-24 16:52] LABS: INR 1.39 (0.86-1.11); PTT,PARTIAL THROMBOPLSTIN TIME 50.4 SEC (23.9-30.7)
[2025-09-24 17:12] LABS: LACTIC ACID 1.9 mmol/L (0.4-2.0)
[2025-09-24 17:16] LABS: A/G RATIO 0.4 (0.9-1.6); ALANINE AMINOTRANSFERASE,ALT 21.0 IU/L (14-63); ASPARTATE AMNIOTRANSFERASE,AST 15.0 IU/L (15-37); BILIRUBIN TOTAL 0.5 mg/dL (0.2-1.0); BLOOD UREA NITROGEN,BUN 31.0 mg/dL (7.0-18.0); CARBON DIOXIDE,CO2 24.0 mmol/L (21.0-32.0); CHLORIDE,CL 104.0 mmol/L (98-107); CREATININE 2.4 mg/dL (0.8-1.3); EST CRCL DRUG DOSING (CG) 23.26 mL/min; ESTIMATED GFR 27.0 mL/min (>60); GLUCOSE RANDOM 131.0 mg/dL (74-106); POTASSIUM,K 3.8 mmol/L (3.5-5.1); PROTEIN TOTAL,TP 4.7 g/dL (6.4-8.2); SODIUM,NA 135.0 mmol/L (136-148)
[2025-09-24 21:09] LABS: GLUCOSE,URINE NEGATIVE (NEGATIVE); OCCULT BLOOD,URINE NEGATIVE (NEGATIVE)
[2025-09-24 21:10] LABS: APPEARANCE,URINE HAZY
[2025-09-24 21:36] LABS: EPITHELIAL CELLS,URINE RARE (NONE-FEW)
[2025-09-24] MEDS: Calcium Gluconate 10% 1 GM/10 ML SDV IV ONE (21:55)
[2025-09-25] MEDS ORDERED: 50% Dextrose in Water 50 ML Syringe IVPUSH PRN (00:03)
[2025-09-25 06:39] LABS: BASOPHILS ABSOLUTE AUTO 0.05 K/uL (0.00-0.20); BASOPHILS PERCENT AUTO 1.2 % (0.0-1.0); EOSINOPHILS ABSOLUTE AUTO 0.06 K/uL (0.00-0.45); EOSINOPHILS PERCENT AUTO 1.5 % (0.0-6.0); IMMATURE GRAN ABSOLUTE AUTO 0.01 K/uL (0.00-0.05); IMMATURE GRAN PERCENT AUTO 0.2 % (0.0-0.4); LYMPHOCYTES ABSOLUTE AUTO 1.39 K/uL (1.00-4.80); LYMPHOCYTES PERCENT AUTO 34.2 % (24.0-44.0); MEAN PLATELET VOLUME 8.9 fL (9.4-12.4); MONOCYTES ABSOLUTE AUTO 0.43 K/uL (0.00-0.80); MONOCYTES PERCENT AUTO 10.6 % (0.0-8.0); NEUTROPHILS ABSOLUTE AUTO 2.13 K/uL (1.80-7.70); NEUTROPHILS PERCENT AUTO 52.3 % (41.0-71.0); NRBC ABSOLUTE 0.00 K/uL (0.00-0.02); NRBC PERCENT 0.0 /100WBC (0.0-0.2); PLATELET COUNT,PLT 226 K/uL (150-400); RED BLOOD CELL COUNT 3.62 M/uL (4.52-5.90); WHITE BLOOD CELL COUNT,WBC 4.07 K/uL (3.9-11.3)
[2025-09-25 07:00] LABS: BLOOD UREA NITROGEN,BUN 32.0 mg/dL (7.0-18.0); CARBON DIOXIDE,CO2 22.5 mmol/L (21.0-32.0); CHLORIDE,CL 107.0 mmol/L (98-107); CREATININE 2.1 mg/dL (0.8-1.3); EST CRCL DRUG DOSING (CG) 30.42 mL/min; GLUCOSE RANDOM 78.0 mg/dL (74-106); POTASSIUM,K 3.9 mmol/L (3.5-5.1); SODIUM,NA 137.0 mmol/L (136-148)
[2025-09-25 07:02] LABS: ESTIMATED GFR 32.0 mL/min (>60)
[2025-09-25] MEDS ORDERED: Sodium Chloride 0.9% 2.5 ML Syringe FLUSH PRN (10:49)
[2025-09-25] MEDS ORDERED: Sodium Chloride 0.9% 10 ML Syringe FLUSH PRN (10:49)
[2025-09-25] MEDS ORDERED: Ondansetron 4 MG/2 ML SDV IVPUSH PRN (10:49)
[2025-09-26 06:01] LABS: BASOPHILS ABSOLUTE AUTO 0.02 K/uL (0.00-0.20); BASOPHILS PERCENT AUTO 0.4 % (0.0-1.0); EOSINOPHILS ABSOLUTE AUTO 0.02 K/uL (0.00-0.45); EOSINOPHILS PERCENT AUTO 0.4 % (0.0-6.0); IMMATURE GRAN ABSOLUTE AUTO 0.01 K/uL (0.00-0.05); IMMATURE GRAN PERCENT AUTO 0.2 % (0.0-0.4); LYMPHOCYTES ABSOLUTE AUTO 1.76 K/uL (1.00-4.80); LYMPHOCYTES PERCENT AUTO 38.6 % (24.0-44.0); MEAN PLATELET VOLUME 8.8 fL (9.4-12.4); MONOCYTES ABSOLUTE AUTO 0.41 K/uL (0.00-0.80); MONOCYTES PERCENT AUTO 9.0 % (0.0-8.0); NEUTROPHILS ABSOLUTE AUTO 2.34 K/uL (1.80-7.70); NEUTROPHILS PERCENT AUTO 51.4 % (41.0-71.0); NRBC ABSOLUTE 0.00 K/uL (0.00-0.02); NRBC PERCENT 0.0 /100WBC (0.0-0.2); PLATELET COUNT,PLT 223 K/uL (150-400); RED BLOOD CELL COUNT 3.42 M/uL (4.52-5.90); WHITE BLOOD CELL COUNT,WBC 4.56 K/uL (3.9-11.3)
[2025-09-26 06:31] LABS: BLOOD UREA NITROGEN,BUN 29.0 mg/dL (7.0-18.0); CARBON DIOXIDE,CO2 22.6 mmol/L (21.0-32.0); CHLORIDE,CL 109.0 mmol/L (98-107); CREATININE 1.9 mg/dL (0.8-1.3); EST CRCL DRUG DOSING (CG) 33.62 mL/min; GLUCOSE RANDOM 77.0 mg/dL (74-106); PHOSPHORUS 4.2 mg/dL (2.6-4.7); POTASSIUM,K 4.0 mmol/L (3.5-5.1); SODIUM,NA 138.0 mmol/L (136-148)
[2025-09-26 06:35] LABS: ESTIMATED GFR 36.0 mL/min (>60)
[2025-09-26 15:36] VITALS: BP 107/71; PULSE 98
== END 2025-09-26 15:37 | disposition home health service (06) | DRG 641 ==
LOC: MW.ED 15:45 → MW.MS 21:58
PROVIDERS: ADMIT Internal Medicine; ATTEND Internal Medicine
DX: E86.0 Dehydration (principal); N17.9 Acute kidney failure, unspecified; E44.0 Moderate protein-calorie malnutrition; S22.32XA Fracture of one rib, left side, initial encounter for closed fracture; I48.20 Chronic atrial fibrillation, unspecified; C64.9 Malignant neoplasm of unspecified kidney, except renal pelvis; C78.00 Secondary malignant neoplasm of unspecified lung; J90 Pleural effusion, not elsewhere classified; I12.9 Hypertensive chronic kidney disease with stage 1 through stage 4 chronic kidney disease, or unspecified chronic kidney disease; I95.9 Hypotension, unspecified; J30.89 Other allergic rhinitis; H54.7 Unspecified visual loss; I48.91 Unspecified atrial fibrillation; G47.30 Sleep apnea, unspecified; K21.9 Gastro-esophageal reflux disease without esophagitis; M19.90 Unspecified osteoarthritis, unspecified site; E11.40 Type 2 diabetes mellitus with diabetic neuropathy, unspecified; F41.9 Anxiety disorder, unspecified; E03.9 Hypothyroidism, unspecified; E11.22 Type 2 diabetes mellitus with diabetic chronic kidney disease; N18.32 Chronic kidney disease, stage 3b; Z95.1 Presence of aortocoronary bypass graft; I25.2 Old myocardial infarction; Z90.5 Acquired absence of kidney; I25.10 Atherosclerotic heart disease of native coronary artery without angina pectoris; Z68.20 Body mass index [BMI] 20.0-20.9, adult; Z98.49 Cataract extraction status, unspecified eye; Z98.890 Other specified postprocedural states; Z79.891 Long term (current) use of opiate analgesic; Z79.890 Hormone replacement therapy; I10 Essential (primary) hypertension; E78.00 Pure hypercholesterolemia, unspecified; W18.30XA Fall on same level, unspecified, initial encounter; Y92.231 Patient bathroom in hospital as the place of occurrence of the external cause; E11.42 Type 2 diabetes mellitus with diabetic polyneuropathy; Z88.8 Allergy status to other drugs, medicaments and biological substances; Z91.048 Other nonmedicinal substance allergy status; Z79.01 Long term (current) use of anticoagulants; Z79.4 Long term (current) use of insulin; Z79.899 Other long term (current) drug therapy; W01.0XXA Fall on same level from slipping, tripping and stumbling without subsequent striking against object, initial encounter
CPT/HCPCS: 36415; 70450; 71260; 72125; 74177; 80053; 81001; 83605; 84484; 85025; 85610; 85730; 86850; 86900; 86901; 93005; 96361; 96374; 99285; J0612; J7030 ×2; Q9967; 80048; 82947; 84100; 97162-GP; 97165-GO; 99223; 99239; 99284; A9270-GY; J1815-GY; J7040